=== PATIENT | male | born 1955 | race Caucasian/White ===

== ENCOUNTER 2016-08-30 09:24 | Day surgery (SDC) | payer MEDICARE ==
--- NOTE | 2016-07-05 09:29 | HP ---
DATE OF CLINIC: 07/04/2016 RAJ ANN II : 1955 PLANNED PROCEDURE: Left Long Finger AI Chanda Trigger Release DATE OF SURGERY: July 20, 2016 SURGEON: Shankar Triplett M.D. HISTORY OF PRESENT ILLNESS Raj Ann is a 61 year old male. * Medication list reviewed with patient allergy list reviewed with patient. This is a 61-year-old male here for a complaint of bilateral hand pain and catching consistent with triggering. The more troubling one right now is a left-hand long finger, but he notes that he has triggering in his right hand long, ring and small fingers as well. This has been going on for a number of months and is actively limiting his ability to do the things that he needs to do, in particular as he is hearing impaired, he uses his hands to sign and it was making it very difficult for him to do that. He has tried icing and some topical pain control agents without adequate relief of his symptoms. No other complaints at this time. After discussion and review of treatment options he has elected to proceed with surgery and presents today preoperatively. PAST MEDICAL AND SURGICAL HISTORY: Past medical again is significant for infection after a right total hip arthroplasty, now largely resolved, after surgery and IV antibiotics. He is on long-term suppressive oral antibiotics. In addition, the patient has a history of a near complete, hearing impairment that normally requires the use of a senior sharepoint developer for [place] Sign Language although the patient can do some lip reading and has hearing aids in today that will give him a bit of hearing. Past surgical history is significant for a right total hip arthroplasty complicated by postoperative infection, now status post I&D with exchange of the plastic cup liner as well as the ceramic head. CURRENT MEDICATION * Aspirin 81 MG TABS, once a day 0 days, 0 refills * CefTRIAXone Sodium 2 GM Solution Reconstituted 1 once a day [place] [facility] and infusion - Abbie MCKINLEY, 0 days, 0 refills * GlipiZIDE ER 5 MG Tablet, extended-release 24 hour TB24, TAKE 2 TABLETS IN THE MORNING AND 1 TABLET IN THE EVENING, 30 days, 3 refills * Lisinopril 2.5 MG Tablet TAKE ONE TABLET ORALLY ONCE DAILY FOR HIGH BLOOD PRESSURE, 90 days, 3 refills * Lovastatin 10 MG Tablet 1 once a day, 90 days, 2 refills * Marijuana Medical Leaves as needed 0 days, 0 refills * MetFORMIN HCl 1000 MG Tablet TAKE 1 TABLET ORALLY TWICE A DAY, 90 days, 3 refills * Metoprolol Succinate ER 50 MG Tablet Extended Release 24 Hour 1 twice a day TAKE 1 TABLET BY MOUTH TWICE DAILY FOR HYPERTENSION, 90 days, Prescribe As Needed. * TraZODone HCl 100 MG Tablet TAKE ONE TABLET ORALLY ONCE DAILY., 30 days, 5 refills * Tylenol PM Extra Strength 500-25 MG Tablet PRN HS, 0 days, 0 refills * Tylenol PM Extra Strength 500-25 MG Tablet 1 tab daily at bedtime as needed, 30 days, 2 refills PAST MEDICAL/SURGICAL HISTORY Reported: No recent change in medical history. Medical: Cholesterol problems. 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 Surgical / Procedural: Prior surgery Heart Surgery - stent 2003, replacement of a hip -Right CAPRI performed 10/06/[address] Shankar Triplett at [facility]. Right CAPRI I&D with poly liner & head exchange 10/28/[address] Shankar Triplett at [facility], and Arthroscopy Right knee 1994. Diagnoses: Hypertension. Diabetes mellitus. Osteoarthritis Right hip and knee Ear surgery 20 + years ago Heart surgery- Stent in 2003 Knee ligament repair in 1994 Sleep Apnea. SOCIAL HISTORY Social history changed. Behavioral: Caffeine use Coffee - 2 cups a day Soda- Occasionally. No tobacco use. Quit smoking 11 years ago. Smoking status: Former smoker. Drug Use: Drug use Medical Marijuana. Work: Occupation Home. Marital: . Functional: Severe hearing impairment. ALLERGIES * Ceftin (Cefuroxime) FAMILY HISTORY Children 2 Children 2 children living Family history unchanged Reported family history of hyperlipidemia Mother CAD, arthritis father stroke Acute myocardial infarction Hypertension Family medical history Mother: Heart disease, HBP, RA Father: Stroke, REVIEW OF SYSTEMS No recent constitutional symptoms to include fevers and chills. No recent cardiovascular symptoms to include chest pain or palpitations. No recent respiratory symptoms to include shortness of breath or recent infections. PHYSICAL FINDINGS * Vitals taken 07/04/2016 10:17 am BP-Sitting R 118/65 mmHg Pulse Rate-Sitting 68 bpm Temp-Tympanic 97.4 F Height 66 in Weight 247 lbs Body Mass Index 39.9 kg/m2 Body Surface Area 2.19 m2 Pain Level 8 Ears, Nose, Throat: * ENT: normal. Lungs: * Clear to auscultation. Cardiovascular: Heart Rate and Rhythm: * Normal. Abdomen: * Normal. Neurological: Motor: * Dominant Hand = Right Hand. Patient is a well-developed, well-nourished male in no acute distress. They are awake and alert throughout the encounter. He is speaking with me today and is able to read lips and has his hearing aids in. He expresses to me that he feels that this is adequate for us to get the appropriate information transmitted between the two of us today. I reassured him that if he was dissatisfied with the outcomes or our ability to communicate today that we would reschedule him at his first convenience and make an additional attempt of an ASL senior sharepoint developer here with us. CARDIOVASCULAR: Intact peripheral pulses on bilateral upper extremities. No significant edema on inspection of bilateral upper extremities. NEUROLOGIC: Patient had intact coordinated composite motion of the bilateral upper extremities and sensation intact to light touch in all distributions of bilateral upper extremities. PSYCHIATRIC: Patient was oriented to person, place and time and displayed appropriate mood and affect during the encounter. SKIN: Exam of the skin on bilateral upper extremities showed no significant scars, lesions, rashes or masses. FOCUSED MUSCULOSKELETAL EXAM: Bilateral hands shows no significant erythema or ecchymosis. They are at a normal resting station. He has some tenderness to palpation over the long finger of the left hand and the long, ring and small finger of the right hand over the flexor tendons at the level of the A1 chanda. He has active visible triggering that does not require him to resolve it with the contralateral hands, we would call it a grade 2 triggering of the above stated digits that being the left long and right long ring and small fingers. He has intact sensation throughout the hands and reasonable strength with well perfused digits. IMAGING No x-rays of the hands are done today. ASSESSMENT A 61-year-old male who has complaints of triggering in both of his hands limiting his daily activities. THERAPY * Patient not eligible for fall risk assessment. PLAN * Trigger finger, left middle finger OxyCODONE HCl 5 MG TABS, 1 every 4 - 6 hours as needed, 30 days, 0 refills Left long finger AI chanda trigger release. CARE TEAM Misbah Ruby MD Family Practice Kera Mendoza MD Cardiovascular Disease SURGICAL CONSENT We have discussed surgical options including left long finger AI chanda trigger release and non-operative management. The patient was counseled in detail regarding the diagnosis, treatment options available, prognosis of each treatment option and the potential risks and complications. The risks of surgery include, but are not limited to, anesthetic , neurovascular complications, pulmonary embolism, deep vein thrombosis, wound dehiscence, failure of any or all of the discussed procedures, infection of the joint or surrounding soft tissue, need for revision surgery, chronic pain, limitations in activities of daily living, inability to return to work, and loss of normal range of motion or functional use of the extremity. There is the possibility of failure over time that may require additional operative or non-operative treatment. The patient acknowledged that there are a number of perioperative risks not mentioned here and would still like to proceed. The patient is aware of and understands these risks, and wishes to proceed with the proposed surgical procedure and other procedures as indicated at the time of surgery. We will have the patient see their PCP for a preoperative medical risk assessment. The preoperative instructions were reviewed with the patient and all questions were answered. PB/sg
--- NOTE | 2016-08-29 15:46 | HP ---
DATE OF CLINIC: 08/18/2016 RAJ ANN II : 1955 PLANNED PROCEDURE: Left Long Finger AI Chanda Release DATE OF SURGERY: August 30, 2016 SURGEON: Shankar Triplett M.D. HISTORY OF PRESENT ILLNESS Raj Ann is a 61 year old male. * Medication list reviewed with patient allergy list reviewed with patient. This is a 61-year-old male here for a couple of reasons, number one he is 7.5 months out from irrigation, debridement with exchange of his poly liner and head after a right total hip arthroplasty complicated by postoperative infection. He has been doing fantastic. He has no pain in the hip at all. It is stable. He has no complaints. It is 0/10 pain. He is able to do all of the things that he wants to do. His second complaint today is of bilateral hand pain and catching consistent with triggering. The more troubling one right now is a left-hand long finger, but he notes that he has triggering in his right hand long, ring and small fingers as well. This has been going on for a number of months and is actively limiting his ability to do the things that he needs to do, in particular as he is hearing impaired, he uses his hands to sign and it was making it very difficult for him to do that. He has tried icing and some topical pain control agents without adequate relief of his symptoms. No other complaints at this time. PAST MEDICAL AND SURGICAL HISTORY: Past medical again is significant for infection after a right total hip arthroplasty, now largely resolved, after surgery and IV antibiotics. He is on long-term suppressive oral antibiotics. In addition, the patient has a history of a near complete, hearing impairment that normally requires the use of a latex dipper for [place] Sign Language although the patient can do some lip reading and has hearing aids in today that will give him a bit of hearing. Past surgical history is significant for a right total hip arthroplasty complicated by postoperative infection, now status post I&D with exchange of the plastic cup liner as well as the ceramic head. He is now ready to proceed with left long finger trigger release and presents preoperatively for that today. We discussed both operative and non-operative management and he has elected to proceed with surgery. CURRENT MEDICATION * Aspirin 81 MG TABS, once a day 0 days, 0 refills * CefTRIAXone Sodium 2 GM Solution Reconstituted 1 once a day [place] Infectious disease and infusion - Abbie MCKINLEY, 0 days, 0 refills * GlipiZIDE ER 5 MG Tablet, extended-release 24 hour TB24, TAKE 2 TABLETS IN THE MORNING AND 1 TABLET IN THE EVENING, 30 days, 3 refills * Lisinopril 2.5 MG Tablet TAKE ONE TABLET ORALLY ONCE DAILY FOR HIGH BLOOD PRESSURE, 90 days, 3 refills * Lovastatin 10 MG Tablet 1 once a day, 90 days, 2 refills * Marijuana Medical Leaves as needed 0 days, 0 refills * MetFORMIN HCl 1000 MG Tablet TAKE 1 TABLET ORALLY TWICE A DAY, 90 days, 3 refills * Metoprolol Succinate ER 50 MG Tablet Extended Release 24 Hour 1 twice a day TAKE 1 TABLET BY MOUTH TWICE DAILY FOR HYPERTENSION, 90 days, Prescribe As Needed. * OxyCODONE HCl 5 MG Tablet 1 every 4 - 6 hours as needed, 30 days, 0 refills * TraZODone HCl 100 MG Tablet TAKE ONE TABLET ORALLY ONCE DAILY., 30 days, 5 refills * Tylenol PM Extra Strength 500-25 MG Tablet PRN HS, 0 days, 0 refills * Tylenol PM Extra Strength 500-25 MG Tablet 1 tab daily at bedtime as needed, 30 days, 2 refills PAST MEDICAL/SURGICAL HISTORY Reported: No recent change in medical history. Medical: Cholesterol problems. 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 Surgical / Procedural: Prior surgery Heart Surgery - stent 2003, replacement of a hip -Right CAPRI performed 10/06/[address] Shankar Triplett at [facility]. Right CAPRI I&D with poly liner & head exchange 10/28/[address] Shankar Triplett at [facility], and Arthroscopy Right knee 1994. Diagnoses: Hypertension. Diabetes mellitus. Osteoarthritis Right hip and knee Ear surgery 20 + years ago Heart surgery- Stent in 2003 Knee ligament repair in 1994 Sleep Apnea. SOCIAL HISTORY Behavioral: Caffeine use Coffee - 2 cups a day Soda- Occasionally and non-smoker quit smoking 11 years ago. Smoking status: Former smoker. Drug Use: Drug use Medical Marijuana. Work: Occupation Home. Marital: . Functional: Severe hearing impairment. ALLERGIES * Ceftin (Cefuroxime) FAMILY HISTORY Children 2 Children 2 children living Family history unchanged Reported family history of hyperlipidemia Mother CAD, arthritis father stroke Acute myocardial infarction Hypertension Family medical history Mother: Heart disease, HBP, RA Father: Stroke, REVIEW OF SYSTEMS No recent constitutional symptoms to include fevers and chills. No recent cardiovascular symptoms to include chest pain or palpitations. No recent respiratory symptoms to include shortness of breath or recent infections. PHYSICAL FINDINGS * Vitals taken 08/18/2016 03:00 pm BP-Sitting R 99/70 mmHg BP Cuff Size Regular Pulse Rate-Sitting 74 bpm Pulse Rhythm Regular Temp-Oral 98.2 F Height 66 in Weight 241 lbs Body Mass Index 38.9 kg/m2 Body Surface Area 2.17 m2 Pain Level 3 Ears, Nose, Throat: * ENT: normal. Lungs: * Clear to auscultation. Cardiovascular: Heart Rate and Rhythm: * Normal. Abdomen: * Normal. Neurological: Motor: * Dominant Hand = Right Hand. Patient is a well-developed, well-nourished male in no acute distress. They are awake and alert throughout the encounter. He is speaking with me today and is able to read lips and has his hearing aids in. He expresses to me that he feels that this is adequate for us to get the appropriate information transmitted between the two of us today. I reassured him that if he was dissatisfied with the outcomes or our ability to communicate today that we would reschedule him at his first convenience and make an additional attempt of an ASL latex dipper here with us. CARDIOVASCULAR: Intact peripheral pulses on bilateral upper extremities. No significant edema on inspection of bilateral upper extremities. NEUROLOGIC: Patient had intact coordinated composite motion of the bilateral upper extremities and sensation intact to light touch in all distributions of bilateral upper extremities. PSYCHIATRIC: Patient was oriented to person, place and time and displayed appropriate mood and affect during the encounter. SKIN: Exam of the skin on bilateral upper extremities showed no significant scars, lesions, rashes or masses. FOCUSED MUSCULOSKELETAL EXAM: Bilateral hands shows no significant erythema or ecchymosis. They are at a normal resting station. He has some tenderness to palpation over the long finger of the left hand and the long, ring and small finger of the right hand over the flexor tendons at the level of the A1 chanda. He has active visible triggering that does not require him to resolve it with the contralateral hands, we would call it a grade 2 triggering of the above stated digits that being the left long and right long ring and small fingers. He has intact sensation throughout the hands and reasonable strength with well perfused digits. TESTS * Test: CBC NO DIFF Report Date: 08/18/2016 WBC 6.7 10*3/mL RBC 3.97 10*6/uL Low MCH 29.0 pg MCHC 33.4 g/dL RDW 14.1 % MCV 86.6 fL PLATELET COUNT 165 10*3/mL HCT 34.4 % HGB 11.5 g/L Low * Test: COMPREHENSIVE METABOLIC PANEL Report Date: 08/18/2016 ALT/SGPT 22 U/L ALBUMIN 4.0 g/dL ALB/GLOB RATIO 1.4 BUN 18 mg/dL BUN/CREAT RATIO 15 CALCIUM 9.4 mg/dL GLUCOSE 188 mg/dL High CREATININE 1.2 mg/dL SODIUM 136 meq/L POTASSIUM 4.5 meq/L CHLORIDE 105 meq/L CARBON DIOXIDE 23 meq/L ANION GAP 13 meq/L TOT PROTEIN 6.8 g/dL GLOBULIN 2.8 g/dL BILI,TOTAL 0.4 mg/dL AST/SGOT 25 U/L ALK PHOSPHATASE 63 U/L GFR 62 IMAGING: X-rays of his hip show a well positioned prosthesis with no significant issues. No x-rays of the hands are done today. ASSESSMENT A 61-year-old male doing well after a washout and liner head exchange for infected right total hip arthroplasty now seven months ago who has complaints of triggering in both of his hands limiting his daily activities. THERAPY * Patient fall risk screen positive. * Patient eligible for fall risk assessment. * Patient received fall risk assessment. PLAN Left long finger AI chanda release CARE TEAM Misbah Ruby MD [facility] Kera Mendoza MD Cardiovascular Disease SURGICAL CONSENT We have discussed surgical options including left long finger AI chanda release and non-operative management. The patient was counseled in detail regarding the diagnosis, treatment options available, prognosis of each treatment option and the potential risks and complications. The risks of surgery include, but are not limited to, anesthetic , neurovascular complications, pulmonary embolism, deep vein thrombosis, wound dehiscence, failure of any or all of the discussed procedures, infection of the joint or surrounding soft tissue, need for revision surgery, chronic pain, limitations in activities of daily living, inability to return to work, and loss of normal range of motion or functional use of the extremity. There is the possibility of failure over time that may require additional operative or non-operative treatment. The patient acknowledged that there are a number of perioperative risks not mentioned here and would still like to proceed. The patient is aware of and understands these risks, and wishes to proceed with the proposed surgical procedure and other procedures as indicated at the time of surgery. We will have the patient see their PCP for a preoperative medical risk assessment. The preoperative instructions were reviewed with the patient and all questions were answered. PB/sg
[~2016-08-30 09:24] MED LIST: CLINDAMYCIN 600 MG PREMIX 50 ML IV ONE; CLINDAMYCIN 600 MG PREMIX 50 ML IV PRN; IV START KIT ONE; SODIUM CHLORIDE 0.9% 1,000 ML ONE
[2016-08-30] MEDS ORDERED: CLINDAMYCIN 600 MG PREMIX 50 ML IV PRN (09:30)
[2016-08-30] MEDS ORDERED: FENTANYL 100 MCG/2 ML VIAL ONE (10:38)
[2016-08-30] MEDS ORDERED: MIDAZOLAM HCL 5 MG/5 ML VIAL ONE (10:38)
[2016-08-30] MEDS ORDERED: BUPIVACAINE 0.5% (PRES FREE) 30 ML VIAL ONE (10:51)
[2016-08-30] MEDS ORDERED: LIDOCAINE 1% (PRES FREE) 30 ML VIAL ONE (10:51)
--- NOTE | 2016-08-30 11:19 | PCMBPN ---
Brief Post Op Note: Date of Procedure: 08/30/16 Start Time: 1110 Preoperative Diagnosis: 1. left long finger trigger Postoperative Diagnosis: 1. Same Procedure: left long finger A1 chanda release Surgeon: Shankar Triplett MD Assist: none Anesthesia: Juarez Waldron Findings: as above Condition: stable to PACU Complications: none IV Fluids: 400 mLs of LR Urine Output: 0 mLs Estimated Blood Loss: 2 mLs Tourniquet Time: 7 minutes Specimens: none Implants: none Drains: none Shankar Triplett MD
[2016-08-30] MEDS ORDERED: OXYCODONE/ACETAMINOPHEN 5/325 MG TABLET PO PRN (11:37)
[2016-08-30] MEDS ORDERED: DIPHENHYDRAMINE HCL 50 MG/1 ML VIAL IV PRN (11:37)
[2016-08-30] MEDS ORDERED: LACTATED RINGERS 1,000 ML IV SCH (11:37)
[2016-08-30] MEDS ORDERED: ONDANSETRON 4 MG/2ML 2 ML VIAL IV PRN (11:37)
[2016-08-30] MEDS ORDERED: ACETAMINOPHEN 325 MG TABLET PO PRN (11:37)
[2016-08-30] MEDS ORDERED: HYDROMORPHONE HCL 1 MG/ML SYRINGE IV PRN (11:37)
--- NOTE | 2016-09-13 06:45 | OP ---
Mateus ANN II : 1955 [id number] DATE OF PROCEDURE: August 30, 2016 PREOPERATIVE DIAGNOSIS: Left long finger triggering. POSTOPERATIVE DIAGNOSIS: Left long finger triggering. PROCEDURE PERFORMED: LEFT LONG FINGER A1 NIK RELEASE. SURGEON: Shankar Trilpett M.D. MARK UP DESIGNER: None. ANESTHESIA: Cornelio MengNEdgar SPECIMENS: No material was sent to the laboratory. ESTIMATED BLOOD LOSS: 2 mL. FLUIDS REPLACED: 400 mL crystalloid. TOURNIQUET TIME: 7 minutes. IMPLANTS: None. DRAINS: None. INDICATIONS: This is a 61-year-old gentleman with a grade 2 to 3 triggering of his left long finger that has gotten worse despite a course of nonoperative measures. He desires surgical intervention. DESCRIPTION OF PROCEDURE: The patient was identified in the preoperative holding area where he was marked with an indelible marker. He is taken to the operating room and placed in supine position on the operating room table. A [place] block anesthesia was induced. He was prepped and draped in the usual sterile fashion for surgery. An operative time out was performed and confirmed by all numbers of the operative team. A transverse incision was made at the level of his A1 nik of his long finger. Dissection was carried down bluntly identifying the radial and ulnar neurovascular bundles. The leading and trailing edges of the A1 nik were identified and this was sharply divided. The patient was asked to flex and extend his finger and was able to do so without any triggering. We also delivered the tendons out of the wound with no evidence of catching or triggering there was no pathology identified with the tendons themselves. At this point the wound was copiously irrigated with sterile saline and closed with two horizontal mattress sutures of #4-0 Nylon. A sterile dressing of Xeroform, fluffs, Anahi and an LINDSAY bandage was applied. The tourniquet was deflated. The drapes were removed. The patient was transferred to a stretcher and taken postoperatively to the postanesthesia care unit in stable condition. There were no observed intraoperative complications during this procedure. Job [id number] Cc: [facility]
== END 2016-08-30 12:35 | disposition home or self-care (01) ==
LOC: SDC 09:24
PROVIDERS: ATTEND Orthopaedic Surgery
PROC: 0LN80ZZ Release Left Hand Tendon, Open Approach (ICD-10-PCS; principal; 2016-08-30)
DX: M65.332 Trigger finger, left middle finger (principal); Z79.82 Long term (current) use of aspirin; Z87.891 Personal history of nicotine dependence; I10 Essential (primary) hypertension; E11.9 Type 2 diabetes mellitus without complications; M16.11 Unilateral primary osteoarthritis, right hip; M17.11 Unilateral primary osteoarthritis, right knee; G47.30 Sleep apnea, unspecified; Z79.84 Long term (current) use of oral hypoglycemic drugs; Z88.1 Allergy status to other antibiotic agents; H91.8X9 Other specified hearing loss, unspecified ear; Z86.19 Personal history of other infectious and parasitic diseases
CPT/HCPCS: 26055; A6453; J3010; A9270; J2250; J2001; J7030